=== PATIENT | male | born 1960 | race Caucasian/White ===

== ENCOUNTER → 2021-05-20 | Outpatient (CLI) | payer BC ==
[~2021-05-20] VITALS: Ht 175 cm; Wt 73.0 kg
[~2021-05-20] MED LIST: CATHETER FLUSH 10 ML SYR IV PRN
[2021-05-20 12:34] VITALS: BP 131/80
--- NOTE | 2021-05-21 10:39 | STRESS TEST ---
DATE OF SERVICE: 05/20/2021 RESTING AND POST EXERCISE TECHNETIUM-99M TETROFOSMIN SPECT CT IMAGING CLINICAL DIAGNOSIS: Chest discomfort. ORDERING PHYSICIAN: Dr. Moreno. PRIMARY PHYSICIAN: Dr. Haider. Baseline images were carried out after injection of 10.63 mCi of technetium-99m Tetrofosmin. This was followed by exercise on a treadmill. Yakov protocol was employed. The electrocardiogram showed sinus rhythm and right bundle branch block at baseline. Heart rate and blood pressure responses to exercise were normal. A few isolated premature ventricular contractions were seen. There was no ventricular or supraventricular tachycardia. There is considerable baseline artifact at peak exercise. ST segments cannot be interpreted for ischemia. The patient received 33 mCi of technetium-99m Tetrofosmin after he had attained more than 85% of maximum predicted heart rate and the exercise was continued for another minute. He tolerated the procedure well. Test was stopped on account of fatigue. He exercised for a total of 13 minutes and 27 seconds. He attained 13.9 METS of workload. Review of images at rest and following stress indicates a small basal inferior perfusion defect. Gated images show normal global left ventricular systolic function with normal regional wall motion. Left ventricular ejection fraction is calculated to be 52%. Left ventricular end-diastolic volume is 77 mL. TID is absent (0.95). CONCLUSIONS: 1. This study is suggestive of a small amount of basal inferior ischemia. 2. Normal regional wall motion. 3. Normal global left ventricular systolic function with a calculated ejection fraction of 52%. Job ID: [id number] DocumentID: [id number] Dictated Date: 05/21/2021 09:13:30 Director Of Social Services Date: 05/21/2021 10:37:26 Dictated By: DANIEL MORENO MD, MA, FACP, FACC,
== END ==
LOC: CARD 09:51
PROVIDERS: ATTEND Internal Medicine Cardiovascular Disease
DX: I51.7 Cardiomegaly (principal)
CPT/HCPCS: 78452; 93017; 93306; A9502

== ENCOUNTER 2021-05-27 11:00 | Day surgery (SDC) | payer BC ==
[~2021-05-27] VITALS: Ht 175 cm; Wt 72.0 kg
[2021-05-27] VITALS (7 sets, daily range): BP systolic 110–125; BP diastolic 50–86
[2021-05-27 09:25] LABS: HEMATOCRIT 48 % (40-54); HEMOGLOBIN 15.8 g/dL (13.3-17.7); MEAN CORPUSCULAR HEMOGLOBIN 32 pg (25-34); MEAN CORPUSCULAR HGB CONC 33 g/dL (32-36); MEAN CORPUSCULAR VOLUME 98 fL (80-99); MEAN PLATELET VOLUME 9.5 fL (9.0-12.2); PLATELET COUNT 269 10^3/uL (130-400); WHITE BLOOD COUNT 6.5 10^3/uL (4.3-11.0)
[2021-05-27 09:43] LABS: ALBUMIN 4.3 GM/DL (3.2-4.5); CALCIUM 9.4 MG/DL (8.5-10.1); CREATININE SERUM 1.2 MG/DL (0.60-1.30); POTASSIUM 4.1 MMOL/L (3.6-5.0)
[2021-05-27 09:44] LABS: PROTHROMBIN TIME PATIENT 13.4 SEC (12.2-14.7)
--- NOTE | 2021-05-27 10:39 | Cardiac Procedure Note-CS/ASA ---
Pre-Procedure Note Pre-Op Procedure Note H&P Reviewed The H&P was reviewed, patient examined and no changes noted. Date H&P Reviewed: May 27, 2021 Time H&P Reviewed: 10:38 Conscious Sedation Pre-Proced Time 10:38 ASA Score 3 For ASA 3 and 4: Consider anesthesia and medical clearance. Also, for patients with a history of failed moderate sedation consider anesthesia. Airway Lungs Heart ASA score ASA 1: a normal healthy patient ASA 2: a patient with a mild systemic disease (mid diabetes, controlled hypertension, obesity ASA 3: a patient with a severe systemic disease that limits activity (angina, COPD, prior Myocardial infarction) ASA 4: a patient with an incapacitating disease that is a constant threat to life (CHF, renal failure) ASA 5: a moribund patient not expected to survive 24 hrs. (ruptured aneurysm) ASA 6: a declared brain- patient whose organs are being harvested. For emergent operations, add the letter E after the classification Mallampati Classification Grade 2 Sedation Plan Analgesia, Amnesia, Plan communicated to team members, Discussed options with patient/fam, Discussed risks with patient/fam The patient is an appropriate candidate to undergo the planned procedure, sedation, and anesthesia. The patient immediately re-assessed prior to indication. DANIEL DOWD MD FACP FAC CCDS May 27, 2021 10:38
[~2021-05-27 11:00] MED LIST changes: +ASCO100024 PO; +ASPI-999 PO; -CATHETER FLUSH 10 ML SYR IV PRN; +EPTIFIBATIDE BOLUS 20 ML IV ONE; +HEParin (CATH LAB) 2,000 ML IV ONE; +HEParin 1000 UNIT/ML (10ML VIAL) FOR BOLUS ONE; +LIDOCAINE 1% INJ 20 ML 20 ML VIAL ONE; +MIDAZOLAM 5 MG/5 ML (VERSED) VIAL ONE; +NF-VITD400 PO; +NITRO DRIP 25000 MCG/D5W 250 ML IV ONE; +NS IV 1000 ML 1,000 ML IV SCH; +NS IV 1000 ML 1,000 ML ONE; +OMG1KC PO; +ROSU5TAB13 PO; +ZINC30TA2 PO; +fentaNYL INJ 100 MCG/2 ML AMP ONE
[2021-05-27] MEDS ORDERED: ASPIRIN 81 MG CHEW (CHILDREN'S ASA) ONE (11:21)
[2021-05-27] MEDS ORDERED: CLOPIDOGREL 300 MG (PLAVIX) TABLET PO ONE (11:21)
[2021-05-27] MEDS ORDERED: PATIENT MAY USE OWN MEDS, ALL PO SCH (12:15)
--- NOTE | 2021-05-27 13:45 | CARDIAC CATHETERIZATION ---
DATE OF SERVICE: 05/27/2021 CARDIAC CATHETERIZATION AND CORONARY INTERVENTION REPORT INDICATION FOR PROCEDURE: The patient is a 60-year-old gentleman, who has been experiencing chest discomfort. A myocardial perfusion imaging study indicated inferior ischemia. His symptoms have continued and have recently gotten worse. Cardiac catheterization was recommended. Informed consent was obtained for cardiac catheterization and possible ad hoc coronary intervention. DESCRIPTION OF PROCEDURE: He was brought to the cardiac catheterization laboratory in a fasting state. Right groin was prepared and draped in the usual sterile fashion. Lidocaine 1% was used as local anesthesia. Modified Seldinger technique was used to advance a 5-Indian sheath in the right femoral artery, 5-Indian JL4 catheter was used for left coronary angiography, and 5-Indian JR4 catheter was used for right coronary angiography, and 5-Indian pigtail catheter was used for left heart catheterization. Left ventricular angiography was not performed. This was to conserve contrast because the patient needed coronary intervention. Subsequently, we carried out percutaneous interventions to the left circumflex and the left anterior descending arteries and it is described below. PERCUTANEOUS INTERVENTION TO THE LEFT CIRCUMFLEX ARTERY: The left circumflex artery was exhibiting approximately 80% stenosis in the mid portion of a large obtuse marginal branch. We exchanged the sheath over a wire for a 6-Indian sheath. We gave a double bolus of Integrilin. We gave 5000 units of intravenous heparin. We used a 6-Indian JL4 guide catheter to engage the left coronary artery. We advanced a BMW wire across the lesion in the diagonal branch and the tip was placed in the distal vessel. The stent to the lesion was Skypoint 2.25 x 15 mm stent that was deployed at 14 atmospheres. Subsequent angiography revealed no significant residual stenosis and flow throughout the vessel is normal. The wire and the balloon were removed. PERCUTANEOUS INTERVENTION TO THE LEFT ANTERIOR DESCENDING: The left anterior descending artery had a 70% stenosis in its mid portion. We kept the JL4 guide catheter. We advanced a BMW wire across the lesion and the tip was placed in the distal vessel. We stented the lesion with a Skypoint 2.25 x 15 mm stent that was deployed at 20 atmospheres. Subsequent angiography reveals no significant residual stenosis. HEMODYNAMICS: Left ventricular end-diastolic pressure following coronary angiography was 11 mmHg. There is no significant pressure gradient on pullback across the aortic valve. Ascending aortic pressure was 116/64 with a mean of 83 mmHg. CORONARY ANGIOGRAPHY: Coronary calcification is present in all vessels. Left main coronary artery does not exhibit significant disease. Left anterior descending artery had 70% mid vessel stenosis that was successfully stented with Skypoint 2.25 x 15 mm stent with no significant residual stenosis. The proximal left anterior descending artery has approximately 30% to 40% stenosis. The first diagonal branch is of a very small caliber and exhibits 99% to 100% stenosis at its ostium. The left circumflex artery has 40% proximal stenosis and approximately 50% to 60% distal stenosis following the origin of a large obtuse marginal. The obtuse marginal had 80% mid vessel stenosis that was successfully stented with Skypoint 2.25 x 15 mm stent. The right coronary artery is chronically and totally occluded in its mid and distal portions. The posterior descending branch is heavily collateralized from the left coronary system. CONCLUSIONS: 1. Three-vessel coronary artery disease. The left anterior descending artery had 70% mid vessel stenosis that was stented with Skypoint 2.25 x 15 mm stent. The proximal left anterior descending has mild to moderate disease. A very small caliber diagonal is subtotally occluded in its ostial portion and is not amenable to intervention. The left circumflex artery has a 40% proximal and 50% to 60% distal stenosis. A large obtuse marginal branch of the left circumflex had 80% mid vessel stenosis that was successfully stented with a Skypoint 2.25 x 15 mm stent. The right coronary artery is chronically and totally occluded and is collateralized by the left coronary system. 2. Normal left ventricular end-diastolic pressure. DISCUSSION AND RECOMMENDATIONS: Risk factor modification has been reviewed. Dual antiplatelet therapy is being initiated. Statin therapy will be given as tolerated. Job ID: [id number] DocumentID: [id number] Dictated Date: 05/27/2021 11:33:08 Geoscientist Date: 05/27/2021 13:44:58 Dictated By: DANIEL DOWD MD, MA, FACP, FACC, MTDD
[2021-05-27] MEDS: NS IV 1000 ML 1,000 ML IV SCH (14:49)
[2021-05-27] MEDS ORDERED: FAMOTIDINE 20 MG (PEPCID) TABLET PO NR (15:00)
[2021-05-27] MEDS: FAMOTIDINE 20 MG (PEPCID) TABLET PO SCH (20:10)
[2021-05-28] MEDS: NS IV 1000 ML 1,000 ML IV SCH (00:36)
[2021-05-28 05:52] LABS: HEMATOCRIT 46 % (40-54); HEMOGLOBIN 15.1 g/dL (13.3-17.7); MEAN CORPUSCULAR HEMOGLOBIN 32 pg (25-34); MEAN CORPUSCULAR HGB CONC 33 g/dL (32-36); MEAN CORPUSCULAR VOLUME 97 fL (80-99); MEAN PLATELET VOLUME 10.1 fL (9.0-12.2); PLATELET COUNT 240 10^3/uL (130-400)
[2021-05-28 06:11] LABS: POTASSIUM 3.8 MMOL/L (3.6-5.0)
[2021-05-28 06:17] LABS: CREATININE SERUM 0.89 MG/DL (0.60-1.30)
[2021-05-28] MEDS ORDERED: ASCORBIC ACID (VIT C) 500 MG TABLET PO SCH (07:00)
--- NOTE | 2021-05-28 08:11 | Progress Note - Cardiology ---
Cardiology SO Progress Note Objective: I&O/Vital Signs Results/Procedures: Labs Microbiology 05/27/21 MRSA Screen - Final, Complete MRSA not isolated A/P: Assessment: CAD - MPI 05-20-21: This study is suggestive of a small amount of basal inferior ischemia. Normal regional wall motion. Normal global left ventricular systolic function with a calculated ejection fraction of 52%. - Subsequent cardiac cath on 05-27-21: Three-vessel coronary artery disease. The left anterior descending artery had 70% mid vessel stenosis that was stented with Skypoint 2.25 x 15 mm stent. The proximal left anterior descending has mild to moderate disease. A very small caliber diagonal is subtotally occluded in its ostial portion and is not amenable to intervention. The left circumflex artery has a 40% proximal and 50% to 60% distal stenosis. A large obtuse marginal branch of the left circumflex had 80% mid vessel stenosis that was successfully stented with a Skypoint 2.25 x 15 mm stent. The right coronary artery is chronically and totally occluded and is collateralized by the left coronary system. Normal left ventricular end-diastolic pressure. - Echocardiogram of 05-20-21 showed LVEF 50% Hyperlipidemia - treated with statin, managed by Dr Haider Abnormal ECG -ECG of 04/25/21: NSR & RBBB Fam h/o early CAD - parents HELEN IVEY May 28, 2021 08:11
[2021-05-28] MEDS ORDERED: CLOP75TA28 PO (08:12)
[2021-05-28] MEDS ORDERED: VITAMIN D3 10 MCG (400 UNITS) TABLET PO SCH (09:00)
[2021-05-28] MEDS ORDERED: ZINC GLUCONATE 30 MG PO SCH (09:00)
[2021-05-28] MEDS ORDERED: CLOPIDOGREL 75 MG (PLAVIX) TABLET PO SCH (09:00)
[2021-05-28] MEDS ORDERED: ASPIRIN 81 MG CHEW (CHILDREN'S ASA) PO SCH (09:00)
[2021-05-28] MEDS ORDERED: ROSUVASTATIN 5 MG (CRESTOR) TABLET PO SCH (09:00)
[2021-05-28] MEDS ORDERED: OMEGA 3 (FISH OIL) 1000 MG CAP PO SCH (09:00)
[2021-05-28] MEDS ORDERED: NON-FORMULARY MEDICATION 1 EA EA (Ascorbic Acid (Vitamin C) 1,000 MG) PO SCH (09:00)
[2021-05-28] MEDS: FAMOTIDINE 20 MG (PEPCID) TABLET PO SCH (09:24)
--- NOTE | 2021-05-28 09:42 | Progress Note - Cardiology ---
Cardiology SOAP Progress Note Subjective: No cp or palp or syncope or shortness of breath No groin or leg discomfort No swelling No n/v/d Objective: I&O/Vital Signs 05/28/21 05/28/21 05/28/21 05/28/21 00:00 01:00 04:00 07:00 Temp 36.3 36.6 Pulse 68 74 Resp 12 11 B/P (MAP) 121/87 127/74 Pulse Ox 96 93 O2 Delivery Room Air Room Air 05/28/21 05/28/21 05/28/21 05/28/21 07:00 07:15 07:30 08:00 Pulse 76 74 75 78 Resp 14 16 13 23 B/P (MAP) 128/85 Pulse Ox 95 O2 Delivery Room Air Room Air Room Air Room Air 05/28/21 05/28/21 05/28/21 05/28/21 08:15 08:30 08:45 09:00 Pulse 78 77 76 74 Resp 16 16 9 19 Pulse Ox 98 98 100 100 O2 Delivery Room Air Room Air Room Air Room Air 05/28/21 09:15 Pulse 81 Resp 33 Pulse Ox 100 05/28/21 00:00 Intake Total 350 ml Balance 350 ml Bruising: mild bruising (at the site of groin sheath) Constitutional: AAO x 3, well-developed, well-nourished Respiratory: No accessory muscle use; other (good, bilat air entry) Cardiovascular: regular rate-rhythm, S1 and S2, systolic murmur (soft RIKY at card basee) Gastrointestional: No tender; soft; No guarding, No rebound; audible bowel sounds Extremities: No clubbing, No cyanosis, No significant edema Neurologic/Psychiatric: oriented x 3, other (moves all limbs equally) Results/Procedures: Labs Laboratory Tests 05/28/21 05:10: Sodium Level 138, Potassium Level 3.8, Chloride Level 106, Carbon Dioxide Level 21, Anion Gap 11, Blood Urea Nitrogen 16, Creatinine 0.89, Estimat Glomerular Filtration Rate 87, BUN/Creatinine Ratio 18, Glucose Level 105, Calcium Level 9.0 05/28/21 05:12: White Blood Count 12.0H, Red Blood Count 4.76, Hemoglobin 15.1, Hematocrit 46, Mean Corpuscular Volume 97, Mean Corpuscular Hemoglobin 32, Mean Corpuscular Hemoglobin Concent 33, Red Cell Distribution Width 12.6, Platelet Count 240, Mean Platelet Volume 10.1 Microbiology 05/27/21 MRSA Screen - Final, Complete MRSA not isolated A/P: Assessment: CAD - MPI 05-20-21: This study is suggestive of a small amount of basal inferior ischemia. Normal regional wall motion. Normal global left ventricular systolic function with a calculated ejection fraction of 52%. - Subsequent cardiac cath on 05-27-21: Three-vessel coronary artery disease. The left anterior descending artery had 70% mid vessel stenosis that was stented with Skypoint 2.25 x 15 mm stent. The proximal left anterior descending has mild to moderate disease. A very small caliber diagonal is subtotally occluded in its ostial portion and is not amenable to intervention. The left circumflex artery has a 40% proximal and 50% to 60% distal stenoses. A large obtuse marginal branch of the left circumflex had 80% mid vessel stenosis that was successfully stented with a Skypoint 2.25 x 15 mm stent. The right coronary artery is chronically and totally occluded and is collateralized by the left coronary system. Normal left ventricular end-diastolic pressure. - Echocardiogram of 05-20-21 showed LVEF 50% Hyperlipidemia - treated with statin, managed by Dr Haider Abnormal ECG -ECG of 04/25/21: NSR & RBBB Fam h/o early CAD - parents Plan: * I discussed the details of his card cath and interventions and answered questions * We reviewed the rationale of his current regimen and advised compliance * Risk factor mod reviewed * Outpt f/u advised DANIEL DOWD MD [facility] May 28, 2021 09:42
--- NOTE | 2021-05-28 10:41 | Discharge Inst-Cardiology ---
Discharge Inst-Cardiac Discharge Medications New Medications: Clopidogrel Bisulfate (Clopidogrel) 75 Mg Tablet 75 MG PO DAILY, #90 TAB 3 Refills Continued Medications: Ascorbic Acid (Vitamin C) 1,000 Mg Tablet 1000 MG PO DAILY, TAB Aspirin (Aspirin) 81 Mg Tab.chew 81 MG PO DAILY, TAB [place] 3 Polyunsat Fatty Acids (Fish Oil 1,000 mg Capsule) 1,000 Mg Cap 1000 MG PO DAILY, CAP Rosuvastatin Calcium (Rosuvastatin Calcium) 5 Mg Tablet 5 MG PO DAILY, TAB Vitamin D (Vitamin D3) 10 Mcg Tablet 400 MCG PO DAILY, TAB Zinc Gluconate (Zinc) 30 Mg Tablet 30 MG PO DAILY, TAB New, Converted or Re-Newed RX: Transmitted to Pharmacy Patient Instructions Patient Instructions: Please schedule follow up appointment to see Dr. Moreno in 1-2 weeks HELEN IVEY May 28, 2021 10:41
[2021-05-28 11:00] VITALS: BP 129/88
== END 2021-05-28 11:00 | disposition home or self-care (01) ==
LOC: ICU 14:28 → CATH 05-28 11:00
PROVIDERS: ATTEND Internal Medicine Cardiovascular Disease
DX: I25.10 Atherosclerotic heart disease of native coronary artery without angina pectoris (principal); I25.82 Chronic total occlusion of coronary artery; E78.5 Hyperlipidemia, unspecified; Z82.49 Family history of ischemic heart disease and other diseases of the circulatory system; Z79.899 Other long term (current) drug therapy; Z79.82 Long term (current) use of aspirin; Z11.2 Encounter for screening for other bacterial diseases; R07.89 Other chest pain
CPT/HCPCS: 80048; 80053; 80061; 85027 ×2; 85610; 85730; 87081; 93005; 93458; C1760; C1769; C1874; C1887; C1894 ×2; C9600 ×2; 36415